=== PATIENT | male | born 1975 | race Caucasian/White ===

== ENCOUNTER 2021-01-26 11:52 | Emergency (ER) | payer OTHER ==
[~2021-01-26] VITALS: Ht 170.2 cm; Wt 68.0 kg
[~2021-01-26 11:52] MED LIST: NAPROXEN500 MG PO; NORCO 5-325 TA1 EACH PO
--- NOTE | 2021-01-26 16:06 | EKG ---
[facility] [address] [facility] [place] [address] Signed Normal sinus rhythm Possible Left atrial enlargement Left anterior fascicular block Abnormal ECG No previous ECGs available Confirmed by LIVE BUTT MD ([id number]) on 01/26/2021 4:05:49 PM Electronically Signed By: LIVE BUTT MD 01/26/21 1606 PATIENT NAME: EJ GORMAN Reg Electrocardiogram DATE OF : 73 PHYSICIAN: LIVE BUTT MD REPORT #: [id number] REPORT IS CONFIDENTIAL AND NOT TO BE RELEASED WITHOUT AUTHORIZATION
== END 2021-01-26 15:58 | disposition home or self-care (01) ==
LOC: ED 11:52
DX: R42 Dizziness and giddiness (principal); R11.0 Nausea; F17.200 Nicotine dependence, unspecified, uncomplicated
CPT/HCPCS: 71045; 80053; 81001; 83690; 83735; 84443; 84484; 85025; 93005; 93010; 99284-25

== ENCOUNTER 2021-09-14 10:52 | Emergency (ER) | payer OTHER ==
[~2021-09-14] VITALS: Ht 170.2 cm; Wt 67.2 kg
--- NOTE | 2021-09-15 09:05 | EKG ---
[facility] [address] [facility] [place], [place] [address] Signed Normal sinus rhythm Normal ECG When compared with ECG of 26-JAN-2021 13:57, No significant change was found Confirmed by BAY LIGHT MD ([id number]) on 09/15/2021 9:05:09 AM Electronically Signed By: BAY LIGHT MD 09/15/21904 PATIENT NAME: EJ GORMAN Reg Electrocardiogram DATE OF : 73 PHYSICIAN: BAY LIGHT MD REPORT #: [id number] REPORT IS CONFIDENTIAL AND NOT TO BE RELEASED WITHOUT AUTHORIZATION
== END 2021-09-14 14:31 | disposition home or self-care (01) ==
LOC: ED 10:52
DX: R55 Syncope and collapse (principal); R31.9 Hematuria, unspecified; R11.2 Nausea with vomiting, unspecified; F17.200 Nicotine dependence, unspecified, uncomplicated
CPT/HCPCS: 80053; 81001; 83690; 84443; 85025; 93005; 93010; 99284-25

== ENCOUNTER 2021-12-15 13:41 | Emergency (ER) | payer OTHER ==
[~2021-12-15] VITALS: Ht 170.2 cm; Wt 67.2 kg
[~2021-12-15 13:41] MED LIST changes: +SERTRALINE HCL50 MG PO
[2021-12-15] MEDS ORDERED: CIPROFLOXACIN500 MG PO (14:15)
[2021-12-15] MEDS ORDERED: OXYCODONE HCL5 MG PO (14:15)
== END 2021-12-15 14:40 | disposition home or self-care (01) ==
LOC: ED 13:41
DX: R33.9 Retention of urine, unspecified (principal); F17.200 Nicotine dependence, unspecified, uncomplicated; Z20.822 Contact with and (suspected) exposure to COVID-19
CPT/HCPCS: 51702; 99283-25

== ENCOUNTER 2023-05-16 05:45 | Day surgery (SDC) | payer OTHER ==
[2023-05-11 16:21] VITALS: BP 125/73
[~2023-05-16] VITALS: Ht 170.2 cm; Wt 68.2 kg
[~2023-05-16 05:45] MED LIST changes: +CIPROFLOXACIN500 MG PO; +OXYCODONE HCL5 MG PO
[2023-05-16 06:02] VITALS: BP 121/76
--- NOTE | 2023-05-16 09:23 | NUR ---
05/16/23 0923 Janel Gutiérrez 0917-PT TO PACU IN SF POSITION. RESPONDS TO VERBAL AND TACTILE STIMULI. PT DENIES PAIN AND NAUSEA. BREATHING EASY AND UNLABORED. SPO2 >95% ON 6 L O2 VIA SIMPLE MASK. 0922-PT OPENS EYES OCCASIONALLY AND REPORTS THE NEED TO VOID. PT EDUCATED ABOUT CATHETER AND GOALS OF CARE IN PACU. BREATHING EASY AND UNLABORED. SPO2 >95% ON 6 L O2 VIA SIMPLE MASK.
[2023-05-16 09:50] VITALS: BP 114/82
--- NOTE | 2023-05-16 09:56 | NUR ---
0942: PT ARRIVES TO UNIT VIA STRETCHER FROM PACU. AWAKE AND ALERT ON ARIVAL. HOLDS APPROPRIATE CONVERSATION. ON RIGHT SIDE TURN FOR MYTOMYCIN INSTILLATION. VSS, RESP EVEN AND UNLABORED. PT DENIES PAIN BUT REPORTS A LOT OF RECTAL PRESSURE AND FEELS LIKE HE NEEDS TO HAVE A BM. DISCUSSED THE IMPORTANCE OF COMPLETING THE MYTOMYCIN TURNS PRIOR AND NOT STRAINING. PT VOICES UNDERSTANDING AND DENIES NEEDS AT THIS TIME. CRACKERS AND ICE WATER PROVIDED. CALL LIGHT WITHIN REACH 0948: PT TURNED TO LEFT SIDE. SPOUSE ATTENTIVE AT THE BEDSIDE. NO NEEDS VOICED
--- NOTE | 2023-05-16 10:15 | NUR ---
1008: TURNED PRONE. CONTS TO C/O RECTAL PRESSURE AND URGE TO HAVE A BM. UNDERSTANDS IMPORTANCE OF COMPLETING TURNS
--- NOTE | 2023-05-16 10:39 | NUR ---
1028: MYTOMYCIN INSTILLATION COMPLETE. PT TURNED ONTO BACK. REA CATH CLAMPED AND DRAINAGE BAG APPLIED. 300MLS URINE AND MEDICATION DRAINED. DRAINAGE BAG REMOVED AND PLACED IN BLACK CHEMO BIN AND NEW DRAINAGE BAG APPLIED. PT DANGLED AT THE BEDSIDE. ISACC WELL, DENIES DIZZINESS AND SOB. PIVOTS TO BEDSIDE COMMODE WITHOUT ASSIST. URGED IMPORTANCE OF AVOIDING STRAINING AND PT VOICES UNDERSTANDING.
[2023-05-16 10:50] VITALS: BP 131/86
--- NOTE | 2023-05-16 10:55 | NUR ---
1040: PT UNABLE TO HAVE A BM. SUCCESSFULLY PASSED GAS AND REPORTS SOME RELIEF. DENIES PAIN AND NAUSEA. VSS, RESP EVEN AND UNLABORED. STATES DESIRE TO DC HOME. SL REMOVED WITH CATH TIP INTACT AND PRESSURE APPLIED TO SITE, WNL. REA CATH INSTRUCTIONS REVIEWED AND PT AND SPOUSE VOICE UNDERSTANDING AND DENY QUESTIONS AND CONCERNS. TO DRESS FOR DC
--- NOTE | 2023-05-16 12:25 | NUR ---
1100: DC INSTRUCTIONS PROVIDED ORDERED AND SUPPLIES FOR REA CATH PROVIDED. PT AND SPOUSE VOICE UNDERSTANDING AND DENY QUESTIONS AND CONCERNS AT THIS TIME. 1105: PT WHEELED OFF OF UNIT BY THIS RN. TRANSFERS INTO VEHICLE INDEPENDENTLY AND APPROPRIATELY. NO PHYSICAL S/S OF DISTRSS AT THIS TIME
--- NOTE | 2023-05-16 19:31 | OR ---
[facility] [address] [place], [place] [address] Signed DATE OF OPERATION: 05/16/2023 SURGEON: Addison Phillip MD PREOPERATIVE DIAGNOSES: 1. Evidence of possible recurrence of bladder tumor, associated with right ureteral orifice. 2. 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 POSTOPERATIVE DIAGNOSES: 1. Evidence of possible recurrence of bladder tumor, associated with right ureteral orifice. 2. 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 NAME OF PROCEDURES: 1. Diagnostic cystoscopy with right retrograde pyelogram. 2. Transurethral resection of bladder tumor-small. 3. Insertion of indwelling double-J ureteral stent into the right collecting system. 4. Intravesical instillation of mitomycin chemotherapy. ANESTHESIA: General LMA. ESTIMATED BLOOD LOSS: Minimal. COMPLICATIONS: None. SPECIMENS: 1. Bladder lesion just medial to the right ureteral orifice. 2. Bernabe right ureteral orifice. DRAINS: A 22-Chinese two-way Kc catheter, capped and secured to the patient's abdomen. INDICATIONS FOR PROCEDURE: Mr. Shaw is a very pleasant 47-year-old gentleman who is well-known to me. A little over a year ago he was diagnosed with high-grade superficial bladder cancer after undergoing transurethral resection of a bladder tumor. He has a history of tobacco use Electronically Signed By: ADDISON PHILLIP MD 05/16/231930 PATIENT NAME: EJ SHAW OPERATIVE REPORT DATE OF : 73 REPORT #: [id number] PHYSICIAN: ADDISON PHILLIP MD PCP: NIHARIKA KENYON MD REPORT IS CONFIDENTIAL AND NOT TO BE RELEASED WITHOUT AUTHORIZATION [facility] [address] [place], [place] [address] Signed and has since significantly to grief to his tobacco use, however, he is still smoking. He underwent recent surveillance cystoscopy, which revealed an area suspicious for tumor recurrence just medial to and involving the bernabe right ureteral orifice. No other obvious lesions were present within the bladder. He presents today to undergo resection of his right ureteral orifice for management of potential recurrence of his high-grade bladder cancer. FINDINGS: 1. On cystoscopy, there are no obvious papillary bladder masses. However, there is an area of erythema with associated bullous edema and minor surface mucosal changes associated with the right ureteral orifice. The right ureteral orifice is otherwise effluxing clear urine. The left ureteral orifice is unremarkable and effluxing clear urine. 2. Right retrograde pyelogram was performed after resection of the neoureteral orifice, which revealed a patent right ureter that was mildly dilated. The right renal pelvis was also slightly dilated, but has no filling defects. 3. The bladder lesion just medial to the right ureteral orifice was resected first and placed in a separate specimen cup labeled "bladder lesion." The second specimen contents consists of tissue obtained via resection of the right neoureteral orifice. The resection was performed using bipolar electrocautery. 4. A 6 x 26 cm double-J ureteral stent was inserted into the patient's right collecting system at the end of the tumor resection under direct visualization without difficulty. 5. A total of 40 mg in 20 mL of mitomycin was instilled into the patient's bladder using a 22-Chinese two-way Kc catheter. This will remain in the patient's bladder for the next 80 minutes. DESCRIPTION OF PROCEDURE: After informed consent was obtained, the patient was taken back to the operating room. [facility] to the operating room table, where general anesthesia was induced. He was placed in the dorsal lithotomy position and his genitalia prepped and draped in a standard sterile fashion. Using a 30-degree lens on a 22.5-Chinese introducer, rigid cystoscope was inserted through his urethra and into his bladder under direct visualization. Panendoscopic views of bladder then obtained. Please see above findings. The rigid cystoscope was then switched out for a 26-Chinese sheath, which was placed using a visual obturator. A resectoscope was then attached with a 23-Chinese loop. I then initially resected the area of suspicion just medial to the right knee neoureteral orifice. This specimen was extracted from the patient's bladder and placed in a specimen cup. I then attempted a right retrograde pyelogram using cone-tipped catheter, however the neoureteral orifice on the right was stenotic and I was unable to pass the cone-tipped catheter into the right ureteral orifice. Because of the abnormal appearance of the right ureteral orifice I went ahead and made the decision to resect this area as well using the resectoscope. The bernabe right ureteral orifice was resected Electronically Signed By: ADDISON PHILLIP MD 05/16/231930 PATIENT NAME: EJ SHAW OPERATIVE REPORT DATE OF : 73 REPORT #: [id number] PHYSICIAN: ADDISON PHILLIP MD PCP: NIHARIKA KENYON MD REPORT IS CONFIDENTIAL AND NOT TO BE RELEASED WITHOUT AUTHORIZATION [address] [address] Signed using a bipolar loop without difficulty. The newly resected ureteral orifice was noted immediately. I removed the resectoscope and inserted another standard cystoscope. This time, I passed a cone-tipped catheter into the new right ureteral orifice and performed a right retrograde pyelogram. Please see above findings. The new ureteral orifice is widely patent and cannulized easily. I passed a Sensor wire through the contra catheter and up into the right collecting system. The cone-tipped catheter was then removed leaving the wire behind. I passed a 6 x 26 cm double-J ureteral stent into the right collecting system under direct visualization without difficulty. Once I pulled the wire, an adequate proximal coil was noted within the right renal pelvis. There was an adequate distal coil on cystoscopy. At this time, I re-evaluated the freshly resected area and hemostasis had been achieved and there was no residual oozing or hemorrhage. I removed the cystoscope at this time. I then passed a 22-Chinese two-way Kc catheter into the patient's bladder and filled the balloon with 10 mL of sterile water. The patient's bladder was then completely drained using the catheter. His bladder was also mainly irrigated with the new catheter in place. I then instilled the 40 mg in 20 mL of mitomycin into the patient's bladder using the existing catheter. The catheter was then capped and secured to the patient's abdomen. The procedure was then terminated. The patient tolerated the procedure well without any complication. He will now be transferred to the postanesthesia care unit in stable condition. DISPOSITION: I discussed the details of the patient's surgery with his today and answered all of her questions. Overall, the resection went well and we will wait for the next 5-7 days for his pathology results to return. He will be notified of the results via telephone. We both agreed that he will go home today with a Kc catheter to gravity drainage. He will be instructed on how to remove his own catheter which he will do in 48 hours. This is because he did experience a bout of urinary retention after surgery after transurethral surgery in the past. He will be sent home with oxycodone 5 mg one q.4-6 hours p.r.n. pain, dispense #30, along with Cipro 500 mg p.o. b.i.d. for a total of 7 days. He has been scheduled to return to clinic in approximately two weeks to undergo cystoscopy with right ureteral stent extraction. Once his stent is removed he will undergo a kidney and bladder ultrasound in approximately 6-8 weeks thereafter to confirm continued drainage of his right collecting system. Addison Phillip MD AR/MODL /[id number] Electronically Signed By: ADDISON PHILLIP MD 05/16/231930 PATIENT NAME: EJ SHAW OPERATIVE REPORT DATE OF : 73 REPORT #: [id number] PHYSICIAN: ADDISON PHILLIP MD PCP: NIHARIKA KENYON MD REPORT IS CONFIDENTIAL AND NOT TO BE RELEASED WITHOUT AUTHORIZATION [address] [address] Signed Copies: ~ Electronically Signed By: ADDISON PHILLIP MD 08/21/23 1931 PATIENT NAME: EJ SHAW OPERATIVE REPORT DATE OF : 73 REPORT #: [id number] PHYSICIAN: ADDISON PHILLIP MD PCP: NIHARIKA KENYON MD REPORT IS CONFIDENTIAL AND NOT TO BE RELEASED WITHOUT AUTHORIZATION
--- NOTE | 2023-05-19 16:21 | PATH ---
[facility] [address] [facility] [place] [address] Signed SPECIMEN(S): A URINARY BLADDER BIOPSY SPECIMEN(S): B RIGHT URETERAL ORIFICE SPECIMEN SOURCE: A. URINARY BLADDER BIOPSY B. RIGHT URETERAL ORIFICE CLINICAL HISTORY: Pre: Bladder tumor. Post: TURBT. FINAL PATHOLOGIC DIAGNOSIS: A. 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 B. Right ureteral orifice: - Fragments of benign smooth muscle and urothelium with reactive histologic features. COMMENT: As part of [facility]' Quality Improvement Program, this case was reviewed by another member of our pathology staff. JVR::[facility] MICROSCOPIC EXAMINATION: Histologic sections of all submitted blocks are examined by light microscopy. These findings, together with the gross examination, support the pathologic diagnosis. Immunostains are performed with appropriate controls and show the following: Block (A1) - CK5: Positive in the basal urothelium. - CD20: Negative for full-thickness urothelial staining (superficial only). Block (B1) - CK5: Positive in the basal urothelium. - CD20: Negative for full-thickness urothelial staining (superficial only). JVR:[facility] GROSS DESCRIPTION: A. The specimen, labeled and designated "Valeria urinary bladder biopsy," is received in formalin and consists of one pink-klein, soft tissue fragment that measures 0.3 cm in greatest dimension. Entirely submitted in (A1). B. The specimen, labeled and designated "Valeria, right ureteral orifice PATIENT NAME: VALERIAEJ WANG PATHOLOGY DATE OF : 73 REPORT #: [id number] PHYSICIAN: RADHA PATHOLOGY PCP: NIHARIKA KENYON MD REPORT IS CONFIDENTIAL AND NOT TO BE RELEASED WITHOUT AUTHORIZATION [facility] [address] [place], [place] [address] Signed biopsy," is received in formalin and consists of irregular shaped pink-klein, rubbery tissue fragments that aggregate measure 1.5 x 1.5 x 0.2 cm. Entirely submitted in (B1). JS (under the direct supervision of a pathologist) The Gross Description was prepared using a voice recognition system. The report was reviewed for accuracy; however, sound-alike word errors, addition and/or deletions may occur. If there is any question about this report, please contact Client Services. ADDITIONAL NOTES: Immunohistochemical and/or in situ hybridization studies were performed on this case with the appropriate positive controls that react as expected. This test was developed and its performance characteristics determined by [facility]. It has not been cleared or approved by the U.S. Food and Drug Administration. The FDA has determined that such clearance or approval is not necessary. This test is used for clinical purposes. It should not be regarded as investigational or for research. [facility] is certified under the Clinical Laboratory Improvement Amendments of 1988 (CLIA) as qualified to perform high complexity clinical laboratory testing. This assay has not been validated for specimens that have been decalcified. PERFORMING LABORATORY: Technical component was performed by [facility], [address] [place] [id number] (CLIA# [id number]). Diagnostician: Chuy Gracia MD Pathologist Electronically Signed 05/19/2023 Copies: ~ PATIENT NAME: EJ GORMAN PATHOLOGY DATE OF : 73 REPORT #: [id number] PHYSICIAN: RADHA PATHOLOGY PCP: NIHARIKA KENYON MD REPORT IS CONFIDENTIAL AND NOT TO BE RELEASED WITHOUT AUTHORIZATION
== END 2023-05-16 11:04 | disposition home or self-care (01) ==
LOC: OPS 05:45 → DS 05:45 → OPS 07:30
PROVIDERS: ATTEND Urology
PROC: 0TBB8ZX Excision of Bladder, Via Natural or Artificial Opening Endoscopic, Diagnostic (ICD-10-PCS; principal; 2023-05-16 07:30)
PROC: 0T768DZ Dilation of Right Ureter with Intraluminal Device, Via Natural or Artificial Opening Endoscopic (ICD-10-PCS; 2023-05-16 07:30)
DX: C67.6 Malignant neoplasm of ureteric orifice (principal)
CPT/HCPCS: 00912; 74420; 88305; 88341; 88342; C1769; C2617; J0690; J1100; J1885; J2250; J2405; J2704; J2765; J3010; J7121; J9280; Q9967